=== PATIENT | male | born 1950 | race Caucasian/White ===

== ENCOUNTER → 2018-08-26 13:10 | Outpatient (CLI) | payer MEDICARE, SELFPAY ==
--- NOTE | 2018-08-26 13:20 | CT_ITS ---
STUDY: CT RIGHT SHOULDER REASON FOR EXAM: Male, 68 years old. Right clavicular pain, horse fell on patient 45 years ago RADIATION DOSAGE (If Supplied By Facility): CTDIvol = ( 29.12 ) mGy, DLP = ( 496.67 ) mGycm TECHNIQUE: The patient was scanned in a multi detector CT scanner. High resolution transaxial imaging was performed without the administration of intravenous contrast material. Sagittal and coronal images were reconstructed. Individualized dose optimization techniques were used for this CT. COMPARISON: None. FINDINGS: There is cephalad migration of the humeral head in relation to the glenoid compatible with a chronic rotator cuff injury. Small amorphous punctate calcifications of the anterior supraspinatus insertion are identified. Normal glenoid rim, neck and visualized scapula. Normal humeral head, neck and tuberosities. Normal coracoid process. Normal visualized lateral clavicle. There is moderate osteoarthritis with articular joint space narrowing and with osteoarthritic spurring. There is a Type III morphology (anterior hook), with a neutral orientation. Normal visualized muscles and soft tissue structures. There are degenerative changes of the cervical spine with endplate sclerosis and posterior disc osteophyte complexes. CT/Extremity Upper without Contra IMPRESSION: 1. Moderate acromioclavicular joint arthrosis with inferior spurring. 2. Suspect chronic rotator cuff injury, likely supraspinatus Electronically Signed: Ravindra Chisholm MD at 17:09 EST , Service support ,
--- OUTSIDE RECORDS SUMMARY | 2018-10-12 08:32 | XMS RPT_ITS ---
:1950 Author Organization OHIP Care Team Providers Name Role Phone MEHUL DUQUE Attending Unavailable MEHUL DUQUE Referring Unavailable MEHUL DUQUE Attending Unavailable MEHUL DUQUE Referring Unavailable PILO KIM Referring Unavailable Chito Campbell Attending Unavailable Chito Campbell Referring Unavailable SOFY DENNIS Primary Care Unavailable GUSTAVO CHOUDHARY, PhD, VIV Attending Unavailable GUSTAVO CHOUDHARY, PhD, VIV Referring Unavailable JULIO, PILO K Primary Care Unavailable JULIO CHOUDHARY, THAN Attending Unavailable PILO KIM K Primary Care Unavailable JULIO CHOUDHARY, THAN Attending Unavailable PILO KIM K Primary Care Unavailable JULIO CHOUDHARY, THAN Attending Unavailable JULIO, PILO K Primary Care Unavailable JULIO CHOUDHARY, THAN Attending Unavailable PILO KIM K Primary Care Unavailable JULIO CHOUDHARY, THAN Attending Unavailable PILO KIM K Primary Care Unavailable JULIO CHOUDHARY, THAN Attending Unavailable JULIO, PILO K Primary Care Unavailable JULIO CHOUDHARY, THAN Attending Unavailable JULIO PILO K Primary Care Unavailable JULIO CHOUDHARY, THAN Attending Unavailable PILO KIM Primary Care Unavailable JULIO CHOUDHARY, JAN Attending Unavailable PILO KIM Primary Care Unavailable PROBLEMS PROBLEMS DATE TYPE CONDITION / CODE ATTENDING STATUS SOURCE 07/26/2018 Active Other specified NA Active [facility] disorders of bone, Other [place] shoulder / Repository M89.8X1(ICD-10) 03/10/2017 Active 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 Imaging Services [address] [place] [address] Extremity Upper without Contra MR#: [id number] Acct: [id number] Name: TUAN NAVARRO Rep #: [id number] : 1950 M 68 From: Ravindra Chisholm MD PCP: OUT OF TOWN DOCTOR Status: REG CLI Study: Extremity Upper without Contra Date of Exam: 08/26/18 Exam# [id number] Ordering Dr: Chito Campbell DO STUDY: CT RIGHT SHOULDER REASON FOR EXAM: Male, 68 years old. Right clavicular pain, horse fell on patient 45 years ago RADIATION DOSAGE (If Supplied By Facility): CTDIvol = ( 29.12 ) mGy, DLP = ( 496.67 ) mGycm TECHNIQUE: The patient was scanned in a multi detector CT scanner. High resolution transaxial imaging was performed without the administration of intravenous contrast material. Sagittal and coronal images were reconstructed. Individualized dose optimization techniques were used for this CT. COMPARISON: None. FINDINGS: There is cephalad migration of the humeral head in relation to the glenoid compatible with a chronic rotator cuff injury. Small amorphous punctate calcifications of the anterior supraspinatus insertion are identified. Normal glenoid rim, neck and visualized scapula. Normal humeral head, neck and tuberosities. Normal coracoid process. Normal visualized lateral clavicle. There is moderate osteoarthritis with articular joint space narrowing and with osteoarthritic spurring. There is a Type III morphology (anterior hook), with a neutral orientation. Normal visualized muscles and soft tissue structures. There are degenerative changes of the cervical spine with endplate sclerosis and posterior disc osteophyte complexes. CT/Extremity Upper without Contra IMPRESSION: 1. Moderate acromioclavicular joint arthrosis with inferior spurring. 2. Suspect chronic rotator cuff injury, likely supraspinatus Electronically Signed: Ravindra Chisholm MD at 17:09 EST , Service support , CC: Chito Campbell DO; OUT OF TOWN DOCTOR Cruise Staff Member: Signed CLAVICLE 2V RIGHT Observed: 07/26/2018 Status: F Source: [facility] 4:20 PM HEALTH SYSTEM REPOSITORY Performed at [facility] APPROVED BY: Pedro Martinez MD EXAM TITLE: CLAVICLE 2V RIGHT DATE: 07/26/2018 15:39 INDICATION: Right clavicular pain. History of malignancy COMPARISON: None. FINDINGS: Routine views of the right clavicle demonstrate mild degenerative arthritic changes at the acromioclavicular joint. No fractures or dislocations are identified. There are no apparent osteoly tic lesions. Incidentally, pacemaker leads are noted. IMPRESSION: Osteoarthritis at the acromioclavicular joint. PROVIDER LETTER - Observed: 07/01/2018 Status: F Source: [facility] 9:[address] [facility] REPOS[facility] PILO KIM, [facility] [place] [address] RE: TUAN NAVARRO - 1950 Dear PILO KIM This document is confidential and intended solely for the use of the individual or entity to which they are addressed. If you are not the named addressee, please disregard and do not disseminate, distr ibute or copy this information. If you are not the intended recipient you are notified that any disclosure of this information and its contents are strictly prohibited. If you have any questions about this document, please contact the office. Sincerely, JULIO CHOUDHARY, THAN [facility] The following document(s) were included in the letter: July 01, 2018 09:03:00 EDT - (07/01/2018) Cardiology Office Note with BMI AMB OFFICE-PROGRESS Observed: 07/01/2018 Status: F Source: [facility] NOTES-PROVIDER 9[facility] [facility] Patient: TUAN NAVARRO Age: 68 years Sex: Male : 1950 Associated Diagnoses: None Author: JULIO CHOUDHARY, THAN Visit Information Visit type: Scheduled follow-up. Accompanied by: No one. Source of history: Self. Referral source: Self. History limitation: None. Chief Complaint Follow-up appointment because of dilated cardiomyopathy status post biventricular pacemaker, hypertension, congestive heart failure and left bundle branch block. Patient is doing very well denies any c ardiac symptoms and has been very active. Chart and medications reviewed. Review of Systems Constitutional: No fever, No chills, No sweats. Eye: Negative. Ear/Nose/Mouth/Throat: Negative. Respiratory: No shortness of breath, No cough. Cardiovascular: No chest pain, No syncope. Gastrointestinal: No nausea, No vomiting. Genitourinary: Negative. Gynecologic Hematology/Lymphatics: No bruising tendency, No bleeding tendency. Endocrine: Negative. Musculoskeletal: Negative. Integumentary: No rash, No abrasions. Psychiatric: No anxiety, No depression. Health Status Allergies: Allergies (2) Active Reaction Augmentin None Documented etodolac None Documented Current medications: Home Medications (12) Active carvedilol 3.125 mg oral tablet 3.125 mg = 1 tabs, ORAL, DAILY cinnamon 1,000 mg, ORAL, BID Co-Q10 100 mg oral capsule 100 mg = 1 caps, ORAL, DAILY digoxin 125 mcg (0.125 mg) oral tablet 125 mcg = 1 tabs, ORAL, DAILY Entresto 24 mg-26 mg oral tablet 1 tabs, ORAL, BID Flomax 0.4 mg oral capsule 0.4 mg = 1 caps, ORAL, DAILY furosemide 20 mg oral tablet 20 mg = 1 tabs, ORAL, DAILY magnesium 500 mg, ORAL, DAILY spironolactone 50 mg oral tablet 50 mg = 1 tabs, ORAL, BID Testosterone Cypionate 100 mg/mL intramuscular solution 50 mg = 0.5 mL, IM, [id number] venlafaxine 50 mg oral tablet 50 mg = 1 tabs, ORAL, DAILY Vitamin D3 , ORAL, DAILY Problem list: Active Problems (7) At risk for falls Dilated cardiomyopathy HTN (hypertension) LBBB (left bundle branch block) Orthopnea SOB (shortness of breath) Status post biventricular pacemaker Histories Past Medical History: No qualifying data available Family History: No family history items have been selected or recorded. Procedure history: Coronary Angiograms. ([id number]) on 01/12/2017 at 66 Years. MICRODISCECTOMY in 2014 at 65 Years. THUMB SURGERY in 2011 at 62 Years. SKIN CANCER in 2005 at 56 Years. CARPEL TUNNEL L HAND in 1992 at 43 Years. ELBOW SURGERY in 1990 at 41 Years. SPINAL BLOCKS 1987,,,13. Dual Chamber Implantable Cardiac Defibrillator & Lead Insertion. (52311). Bi-Ventricular Implantable Cardiac Defibrillator Generator Insertion. (07158). Social History Social & Psychosocial Habits Alcohol 12/04/2016 Risk Assessment: Denies Alcohol Use Exercise 12/04/2016 Risk Assessment: Regular exercise . Physical Examination Temperature 97.1 (08:53) Systolic Blood Pressure 118 (09:03) Diastolic Blood Pressure 70 (09:03) Pulse 72 (08:53) SpO2 No result Respiratory Rate No result VS/Measurements Documented vital signs, Vital Signs (last 24 hrs) Last Charted Heart Rate Apical 72 bpm (JUL 01 08:52) SBP 118 mmHg (JUL 01 09:02) DBP 70 mmHg (JUL 01 09:02) Weight 98 kg (JUL 01 08:52) Height 178 cm (JUL 01 08:52) BMI 30.93 (JUL 01 08:52) General: Alert and oriented, No acute distress. Skin: No cyanosis, Not jaundiced. Eye: Normal conjunctiva. HENT: Normocephalic. Neck: Supple, Non-tender, No carotid bruit, No jugular venous distention, No lymphadenopathy, No thyromegaly. Respiratory: Symmetrical chest wall expansion, No chest wall tenderness. Breath sounds: Bilateral, Anterior, Posterior, No wheezing, No crackles present. Cardiovascular: Normal rate, Regular rhythm, No murmur, No gallop, Good pulses equal in all extremities, Normal peripheral perfusion, No edema. Gastrointestinal: Soft, Non-tender, Normal bowel sounds, No organomegaly. Genitourinary: No costovertebral angle tenderness. Lymphatics: No lymphadenopathy neck, axilla, groin. Musculoskeletal: Normal range of motion, Normal strength, No tenderness, No deformity. Integumentary: Warm. Neurologic: Alert, Oriented, No focal deficits. Psychiatric: Cooperative, Normal judgment. Review / Management No qualifying data available Impression and Plan 1. Dilated cardiomyopathy. 2. LV systolic dysfunction status post biventricular pacemaker. 3. Blood pressure is controlled. 4. Congestive heart failure compensated. Plan. 1. Advised to continue same medications and increase activity. 2. Follow-up appointment in 3 months, echo to be done before the office visit. Electronically signed by Dr. Aliyah Kim. CBC Collected: 06/22/2018 Status: F Source: [place] 9:45 AM [facility] REPOSITORY TYPE CODE TESTS RESULT OUT OF REFERENCE UNITS RANGE LAB WBC 3.70-11.00 k/uL WBC 9.73 LAB RBC 4.20-6.00 m/uL RBC 4.72 LAB HGB 13.0-17.0 g/dL Hemoglobin 15.3 LAB HCT 39.0-51.0 % Hematocrit 46.2 LAB MCV 80.0-100.0 fL MCV 97.9 LAB MCH 26.0-34.0 pG MCH 32.4 LAB MCHC 30.5-36.0 g/dL MCHC 33.1 LAB RDWCV 11.5-15.0 % RDW-CV 12.9 LAB PLTCT 150-400 k/uL Platelet Count 250 LAB MPV 9.0-12.7 fL MPV 10.1 Performed By: #### CBC #### [facility] [address] [place] [address] #### PSAS1 #### [facility] [employer] [place] [address] PSA, SCREENING Collected: 06/22/2018 Status: F Source: [place] 9:45 AM [facility] REPOSITORY TYPE CODE TESTS RESULT OUT OF REFERENCE UNITS RANGE LAB PSAS 0.00-2.59 ng/mL PSA, Screening 0.65 Result Comment: Total PSA test methodology used is the Electrochemiluminescence Immunoassay. Performed By: #### CBC #### [facility] [address] [place] [address] #### PSAS1 #### [facility] [employer] [facility], [place] [address] PROGRESS Observed: 06/22/2018 Status: COMPLETED Source: [place] 9:27 AM [facility] REPOSITORY O ID: [id number] Author: Mehul Duque MD Service: (none) Author Type: Physician Type: Progress Notes Filed: 06/23/2018 1:30 PM Note Text: Follow-up 68 year-old male, patient of Dr. ALESHIA Kim, here for hypogonadism follow up. History in brief, he was diagnosed over 5 years ago when he developed symptoms The diagnosis was made Body logics- Dr.Gary Mike Current treatment: he takes 0.50 ml q 2 weeks IM Had pacemaker/defibrillator placed in 09/2017 Has chronic heart failure, now on Entresto. ? Current Outpatient Prescriptions on File Prior to Visit: testosterone cypionate (DEPO-TESTOSTERONE) 200 mg/mL injection inject 0.5 mls INTRAMUSCULARLY every 2 (TWO) weeks Syringe, Disposable, (EASY TOUCH LUER LOCK SYRINGE) 1 mL syrg For testosterone injections. Needle, Disp, 18 G (BD DISPOSABLE NEEDLES) 18 gauge x 1 ndle Use as directed to drawn testosterone Needle, Disp, 21 G 21 gauge x 1 ndle For testosterone injections sacubitril-valsartan (ENTRESTO) 24-26 mg tablet Take 1 tablet by mouth twice daily. furosemide (LASIX) 20 mg tablet Take 20 mg by mouth once daily. cholecalciferol (VITAMIN D-3) 5,000 unit tab Take 5,000 Units by mouth once daily. Magnesium Oxide 500 mg tab Take 500 mg by mouth once daily. carvedilol (COREG) 3.125 mg tablet Take 3.125 mg by mouth once daily. spironolactone (ALDACTONE) 50 mg tablet Take 1 tablet by mouth once daily. digoxin (LANOXIN) 125 mcg tablet Take 1 tablet by mouth once daily. venlafaxine (EFFEXOR) 50 mg tablet Take 1 tablet by mouth once daily. bimatoprost (LUMIGAN) 0.01 % drop ophthalmic drops 1 Drop daily at bedtime. CINNAMON BARK (CINNAMON ORAL) Take 1,000 mg by mouth twice daily. tamsulosin (FLOMAX) 0.4 mg Cp24 Take 0.4 mg by mouth once daily. ALLERGIES Allergen Reactions - Augmentin [Amoxicil* Intolerance, Diarrhea - Etodolac Intolerance REVIEW OF SYSTEMS: ? GENERAL: Fever - No Changes in weight -see above Notes no daytime hypersomnolence NEUROLOGICAL: Numbness, tingling or sensation of pins and needles - No Headaches-No ? HEAD, EYES, EARS, NOSE, AND THROAT: Changes in hearing - No Changes in vision - No ? ? CARDIOVASCULAR: Chest pain or pressure - No Palpitations - No ? RESPIRATORY: Cough - No Wheezing - No Shortness of breath - No ? ? GASTROINTESTINAL: Abdominal discomfort - No Nausea - No Vomiting - No ? EXTREMITY: Edema (swelling) - No Claudication-No ? MUSCULOSKELETAL: Muscle pain or ache - No Arthralgia-No ? Skin: Rash - No Pruritus-No ? ENDOCRINE: Diabetes - No Thyroid disorder - No ? PSYCHOLOGICAL: Depression - No ? PAST MEDICAL HISTORY: PAST?MEDICAL?HISTORY PAST MEDICAL HISTORY Diagnosis Date - Ankle fracture 1980 ? left - Cancer (HCC) 08/18/2006 ? skin - Clavicle fracture 11/1972 ? right - Depression ? - Diverticulosis ? - Enlarged prostate ? - Fibromyalgia ? - H/O microdiscectomy 05/2015 - Herniated disc ? - Hypertension ? - Lower GI bleeding 11/10/2015 - Osteoarthritis ? - Shoulder fracture 12/1997 ? left - Skin cancer 2005,2011 ? ?PHYSICAL EXAM: BP 111/68 (BP Site: Left Arm, BP Position: Sitting, BP Cuff Size: Large Adult) Pulse 68 Ht 177.8 cm (5' 10) Wt 99.6 kg (219 lb 9.6 oz) SpO2 99% BMI 31.51 kg/m? General: Alert and oriented x3, no acute distress Weight up 3 pounds since 12/2017 BP normal, pulse regular. Eyes: Anicteric sclera. Pupils are equally round. Extraocular movements are intact. Mucous membranes moist, no erythema Neck supple, no cervical lymphadenopathy Thyroid: normal size, normal texture, no palpable nodules Lungs: Breathing unlabored, clear to auscultation. No wheezing, rhonchi, rales Heart regular rate and rhythm, no murmer Musculoskeletal: Muscular strength intact, No joint swelling, deformity, or tenderness Neuro: Gait normal. Sensation grossly intact. Normal DTR's at patella Abdomen:Normal abdominal sounds, non tender to palpation, no masses Extremities: without edema, good peripheral pulses Skin: no rashes/ erythema Results for TUAN NAVARRO Georgi ( ) Ref. Range 12/29/2017 10:44 Testosterone Latest Ref Range: 193 - 824 ng/dL 623 08/30/2017 10:06 09/15/2017 11:01 11/17/2017 09:32 Sodium 141 Potassium 4.7 Chloride 98 CO2 30 BUN 18 Creatinine 0.99 Glucose 103 (H) Calcium 9.7 Vitamin B12 558 PSA 0.96 PSA, Percent Free 22 Hemoglobin A1C 5.6 TSH 0.830 Testosterone 310 WBC 4.70 6.92 RBC 4.59 4.76 Hemoglobin 14.8 15.3 Hematocrit 45.9 47.9 [facility] website checked and validated. All prescriptions have been APPROPRIATELY filled. No suspicious activity was identified. 06/22/2018 by Mheul Duque MD ASSESSMENT/PLAN: Hypogonadism - continue testosterone parenterally, prefers smaller needles? Obesity - urged weight loss efforts PLAN: ? OK to go back to prior needle use for shots. ? Get labs done at [facility] - CBC, PSA ? Will call with results. ? See me again in 12 months. ? Do testosterone level again in December,, one week after testosterone injection.See me again in 6-9 months. Mehul Duque MD CNOV Observed: 06/22/2018 Status: COMPLETED Source: [place] 9:05 AM [facility] REPOSITORY Office Visit (SELVIN) TUAN NAVARRO ([id number]) 1950 M Date Time Provider Department 06/22/18 9:05 AM MEHUL DUQUE During your visit today, we recorded the following information about you: Pulse Blood pressure Weight Height 68/minute 111/68 99.6 kg 1.778 m Mehul Duque MD, MD 06/23/2018 1:30 PM Signed Follow-up 68 year-old male, patient of Dr. ALESHIA Kim, here for hypogonadism follow up. History in brief, he was diagnosed over 5 years ago when he developed symptoms The diagnosis was made Body logics- Dr.Gary Mike Current treatment: he takes 0.50 ml q 2 weeks IM Had pacemaker/defibrillator placed in 09/2017 Has chronic heart failure, now on Entresto. ? Current Outpatient Prescriptions on File Prior to Visit: testosterone cypionate (DEPO-TESTOSTERONE) 200 mg/mL injection inject 0.5 mls INTRAMUSCULARLY every 2 (TWO) weeks Syringe, Disposable, (EASY TOUCH LUER LOCK SYRINGE) 1 mL syrg For testosterone injections. Needle, Disp, 18 G (BD DISPOSABLE NEEDLES) 18 gauge x 1 ndle Use as directed to drawn testosterone Needle, Disp, 21 G 21 gauge x 1 ndle For testosterone injections sacubitril-valsartan (ENTRESTO) 24-26 mg tablet Take 1 tablet by mouth twice daily. furosemide (LASIX) 20 mg tablet Take 20 mg by mouth once daily. cholecalciferol (VITAMIN D-3) 5,000 unit tab Take 5,000 Units by mouth once daily. Magnesium Oxide 500 mg tab Take 500 mg by mouth once daily. carvedilol (COREG) 3.125 mg tablet Take 3.125 mg by mouth once daily. spironolactone (ALDACTONE) 50 mg tablet Take 1 tablet by mouth once daily. digoxin (LANOXIN) 125 mcg tablet Take 1 tablet by mouth once daily. venlafaxine (EFFEXOR) 50 mg tablet Take 1 tablet by mouth once daily. bimatoprost (LUMIGAN) 0.01 % drop ophthalmic drops 1 Drop daily at bedtime. CINNAMON BARK (CINNAMON ORAL) Take 1,000 mg by mouth twice daily. tamsulosin (FLOMAX) 0.4 mg Cp24 Take 0.4 mg by mouth once daily. ALLERGIES Allergen Reactions - Augmentin [Amoxicil* Intolerance, Diarrhea - Etodolac Intolerance REVIEW OF SYSTEMS: ? GENERAL: Fever - No Changes in weight -see above Notes no daytime hypersomnolence NEUROLOGICAL: Numbness, tingling or sensation of pins and needles - No Headaches-No ? HEAD, EYES, EARS, NOSE, AND THROAT: Changes in hearing - No Changes in vision - No ? ? CARDIOVASCULAR: Chest pain or pressure - No Palpitations - No ? RESPIRATORY: Cough - No Wheezing - No Shortness of breath - No ? ? GASTROINTESTINAL: Abdominal discomfort - No Nausea - No Vomiting - No ? EXTREMITY: Edema (swelling) - No Claudication-No ? MUSCULOSKELETAL: Muscle pain or ache - No Arthralgia-No ? Skin: Rash - No Pruritus-No ? ENDOCRINE: Diabetes - No Thyroid disorder - No ? PSYCHOLOGICAL: Depression - No ? PAST MEDICAL HISTORY: PAST?MEDICAL?HISTORY PAST MEDICAL HISTORY Diagnosis Date - Ankle fracture 1980 ? left - Cancer (HCC) 08/18/2006 ? skin - Clavicle fracture 11/1972 ? right - Depression ? - Diverticulosis ? - Enlarged prostate ? - Fibromyalgia ? - H/O microdiscectomy 05/2015 - Herniated disc ? - Hypertension ? - Lower GI bleeding 11/10/2015 - Osteoarthritis ? - Shoulder fracture 12/1997 ? left - Skin cancer 2005,2011 ? ?PHYSICAL EXAM: BP 111/68 (BP Site: Left Arm, BP Position: Sitting, BP Cuff Size: Large Adult) Pulse 68 Ht 177.8 cm (5' 10) Wt 99.6 kg (219 lb 9.6 oz) SpO2 99% BMI 31.51 kg/m? General: Alert and oriented x3, no acute distress Weight up 3 pounds since 12/2017 BP normal, pulse regular. Eyes: Anicteric sclera. Pupils are equally round. Extraocular movements are intact. Mucous membranes moist, no erythema Neck supple, no cervical lymphadenopathy Thyroid: normal size, normal texture, no palpable nodules Lungs: Breathing unlabored, clear to auscultation. No wheezing, rhonchi, rales Heart regular rate and rhythm, no murmer Musculoskeletal: Muscular strength intact, No joint swelling, deformity, or tenderness Neuro: Gait normal. Sensation grossly intact. Normal DTR's at patella Abdomen:Normal abdominal sounds, non tender to palpation, no masses Extremities: without edema, good peripheral pulses Skin: no rashes/ erythema Results for TUAN NAVARRO ( ) Ref. Range 12/29/2017 10:44 Testosterone Latest Ref Range: 193 - 824 ng/dL 623 08/30/2017 10:06 09/15/2017 11:01 11/17/2017 09:32 Sodium 141 Potassium 4.7 Chloride 98 CO2 30 BUN 18 Creatinine 0.99 Glucose 103 (H) Calcium 9.7 Vitamin B12 558 PSA 0.96 PSA, Percent Free 22 Hemoglobin A1C 5.6 TSH 0.830 Testosterone 310 WBC 4.70 6.92 RBC 4.59 4.76 Hemoglobin 14.8 15.3 Hematocrit 45.9 47.9 [facility] checked and validated. All prescriptions have been APPROPRIATELY filled. No suspicious activity was identified. 06/22/2018 by Mehul Duque MD ASSESSMENT/PLAN: Hypogonadism - continue testosterone parenterally, prefers smaller needles? Obesity - urged weight loss efforts PLAN: ? OK to go back to prior needle use for shots. ? Get labs done at [facility] - CBC, PSA ? Will call with results. ? See me again in 12 months. ? Do testosterone level again in December,, one week after testosterone injection.See me again in 6-9 months. MD Mehul Castillo MD, MD 06/22/2018 9:37 AM Signed OK to go back to prior needle use for shots. Get labs done at [facility]. Will call with results. See me again in 12 months. Do testosterone level again in December,, one week after testosterone injection. Referring Provider: SELF [200] Allergies As of Date: 06/22/2018 Noted Allergy Reaction AUGMENTIN (AMOXICILLIN-POT CLAVUL*12/08/2016 5 - Intolerance 6 - Diarrhea ETODOLAC 12/08/2016 5 - Intolerance Date Reviewed: 06/22/2018 Reviewed by: Stephen Del Toro Ma - Fully Assessed Reason for Visit: Low Testosterone [2926] Primary Visit Diagnosis:Hypogonadism male [E29.1] Other Visit Diagnosis:Obesity, Class I, BMI 30-34.9 [E66.9] Order(s):Needle, Disp, 18 G (BD DISPOSABLE NEEDLES) 18 gauge x 1 ndleUse as directed to drawn testosteroneDisp: 30 EachRfl: 1 Safety Hershey (EASY TOUCH FLIPLOCK NEEDLE) 27 gauge x 1/2 ndleUse as directed every 2 weeksDisp: 30 EachRfl: 1 CBC [SQCBC] Order #: [id number] FUTURE PSA/PROSTSPECAG SCRN [SQPSAS1] Order #: [id number] FUTURE TESTOSTERONE TOTAL [SQTESTO] Order #: [id number] FUTURE testosterone cypionate (DEPO-TESTOSTERONE) 200 mg/mL injectioninject 0.5 mls INTRAMUSCULARLY every 2 (TWO) weeksDisp: 10 mLRfl: 0 Prescriptions as of 06/22/2018 Sig: TESTOSTERONE CYPIONATE 200 MG* inject 0.5 mls INTRAMUSCULARL* SYRINGE (DISPOSABLE) 1 ML For testosterone injections. SACUBITRIL 24 MG-VALSARTAN 26* Take 1 tablet by mouth twice * FUROSEMIDE 20 MG TABLET Take 20 mg by mouth once ricardo* CHOLECALCIFEROL (VITAMIN D3) * Take 5,000 Units by mouth onc* MAGNESIUM OXIDE 500 MG TABLET Take 500 mg by mouth once jeremias* CARVEDILOL 3.125 MG TABLET Take 3.125 mg by mouth once d* SPIRONOLACTONE 50 MG TABLET Take 1 tablet by mouth once d* DIGOXIN 125 MCG TABLET Take 1 tablet by mouth once d* VENLAFAXINE 50 MG TABLET Take 1 tablet by mouth once d* BIMATOPROST 0.01 % EYE DROPS 1 Drop daily at bedtime. CINNAMON ORAL Take 1,000 mg by mouth twice * TAMSULOSIN 0.4 MG CAPSULE Take 0.4 mg by mouth once jeremias* NEEDLE (DISP) 18 GAUGE X 1 Use as directed to drawn test* SAFETY NEEDLES 27 GAUGE X 1/2 Use as directed every 2 weeks Problem List As Of Date 06/22/2018 Noted Resolved Enthesopathy of hip region [M76.899] INVALID FOR*12/17/2017 Facet arthropathy (HCC) [M47.819] INVALID FOR*12/17/2017 Lumbar radiculopathy [M54.16] INVALID FOR* Left hip pain [M25.552] INVALID FOR*12/17/2017 Left knee pain [M25.562] INVALID FOR*12/17/2017 Chondrocalcinosis [M11.20] INVALID FOR*06/22/2018 Hip arthritis [M16.10] INVALID FOR*12/17/2017 Lower GI bleeding [K92.2] INVALID FOR*12/17/2017 Hypogonadism male [E29.1] INVALID FOR* Presence of combination internal cardiac defibr*INVALID FOR* Obesity, Class I, BMI 30-34.9 [E66.9] INVALID FOR* Chronic systolic heart failure (HCC) [I50.22] INVALID FOR* Other instructions from your clinician: OK to go back to prior needle use for shots. Get labs done at [facility]. Will call with results. See me again in 12 months. Do testosterone level again in December,, one week after testosterone injection. Prescriptions ordered this encounter Disp Refills Start End NEEDLE (DISP) 18 GAUGE X 1 30 E* 1 06/22/2018 Sig: Use as directed to drawn testosterone SAFETY NEEDLES 27 GAUGE X 1/2 30 E* 1 06/22/2018 Sig: Use as directed every 2 weeks TESTOSTERONE CYPIONATE 200 MG/ML INT* 10 mL 0 06/22/2018 12/21/2018 Class: Print RX Sig: inject 0.5 mls INTRAMUSCULARLY every 2 (TWO) weeks Medications Discontinued During This Encounter UBIDECARENONE (COQ-10 ORAL) 06/22/2018 Class: Historical Med Route: ORAL Sig: Take 100 mg by mouth once daily. Disc: Course of therapy completed cyanocobalamin (VITAMIN B-12) 1,000 * 06/22/2018 Class: Historical Med Route: ORAL Sig: Take 1,000 mcg by mouth once daily. Disc: Course of therapy completed Needle, Disp, 21 G 21 gauge x 1 ndle 10 E* 3 12/17/2017 06/22/2018 Sig: For testosterone injections Disc: Reason for discontinue is not on file. Needle, Disp, 18 G (BD DISPOSABLE NE* 10 E* 3 12/17/2017 06/22/2018 Sig: Use as directed to drawn testosterone Disc: Reason for discontinue is not on file. testosterone cypionate (DEPO-TESTOST* 10 mL 0 05/13/2018 06/22/2018 Class: Print RX Sig: inject 0.5 mls INTRAMUSCULARLY every 2 (TWO) weeks Disc: Reason for discontinue is not on file. Follow-up and Disposition History Recorded Encounter Status:Closed by MEHUL DUQUE MD on 06/23/18 PROVIDER LETTER - Observed: 04/01/2018 Status: F Source: [facility] 11:[address] [facility] RE[facility]IT[facility] PILO KIM, [address] [place] [id number] RE: TUAN NAVARRO - 1950 Dear PILO KIM This document is confidential and intended solely for the use of the individual or entity to which they are addressed. If you are not the named addressee, please disregard and do not disseminate, distr ibute or copy this information. If you are not the intended recipient you are notified that any disclosure of this information and its contents are strictly prohibited. If you have any questions about this document, please contact the office. Sincerely, JULIO CHOUDHARY, [facility] The following document(s) were included in the letter: April 01, 2018 11:18:00 EDT - (04/01/2018) Cardiology Office Note with BMI AMB OFFICE-PROGRESS Observed: 04/01/2018 Status: F Source: [facility] NOTES-PROVIDER 11:[address] [facility] Patient: TUAN NAVARRO Age: 68 years Sex: Male : 1950 Associated Diagnoses: None Author: JAN KIM MD Visit Information Visit type: Scheduled follow-up. Accompanied by: No one. Source of history: Self. Referral source: Self. History limitation: None. Chief Complaint Follow-up appointments because of severe LV systolic dysfunction status post biventricular pacemaker, diastolic dysfunction, congestive heart failure and LEFT bundle-branch block. Patient is doing much better denies any orthopnea or PND and has been very active. Chart and medications reviewed. Reserves of echocardiogram reviewed patient still has ejection fraction of 25-30 percent. Review of Systems Constitutional: No fever, No chills, No sweats. Eye: Negative. Ear/Nose/Mouth/Throat: Negative. Respiratory: No shortness of breath, No cough. Cardiovascular: No chest pain, No syncope. Gastrointestinal: No nausea, No vomiting. Genitourinary: Negative. Gynecologic Hematology/Lymphatics: No bruising tendency, No bleeding tendency. Endocrine: Negative. Musculoskeletal: Negative. Integumentary: No rash, No abrasions. Psychiatric: No anxiety, No depression. Health Status Allergies: Allergies (2) Active Reaction Augmentin None Documented etodolac None Documented Current medications: Home Medications (13) Active carvedilol 3.125 mg oral tablet 3.125 mg = 1 tabs, ORAL, BID cinnamon 1,000 mg, ORAL, BID Co-Q10 100 mg oral capsule 100 mg = 1 caps, ORAL, DAILY digoxin 125 mcg (0.125 mg) oral tablet 125 mcg = 1 tabs, ORAL, DAILY Entresto 24 mg-26 mg oral tablet 1 tabs, ORAL, BID Flomax 0.4 mg oral capsule 0.4 mg = 1 caps, ORAL, DAILY furosemide 20 mg oral tablet 20 mg = 1 tabs, ORAL, DAILY magnesium 500 mg, ORAL, DAILY spironolactone 50 mg oral tablet 50 mg = 1 tabs, ORAL, DAILY spironolactone 50 mg oral tablet 50 mg = 1 tabs, ORAL, BID Testosterone Cypionate 100 mg/mL intramuscular solution 50 mg = 0.5 mL, IM, [id number] venlafaxine 50 mg oral tablet 50 mg = 1 tabs, ORAL, DAILY Vitamin D3 , ORAL, DAILY Problem list: Active Problems (7) At risk for falls Dilated cardiomyopathy HTN (hypertension) LBBB (left bundle branch block) Orthopnea SOB (shortness of breath) Status post biventricular pacemaker Histories Past Medical History: No qualifying data available Family History: No family history items have been selected or recorded. Procedure history: Coronary Angiograms. ([id number]) on 01/12/2017 at 66 Years. MICRODISCECTOMY in 2014 at 65 Years. THUMB SURGERY in 2011 at 62 Years. SKIN CANCER in 2005 at 56 Years. CARPEL TUNNEL L HAND in 1992 at 43 Years. ELBOW SURGERY in 1990 at 41 Years. SPINAL BLOCKS 1987,,,13. Dual Chamber Implantable Cardiac Defibrillator & Lead Insertion. ([id number]). Bi-Ventricular Implantable Cardiac Defibrillator Generator Insertion. (10454). Social History Social & Psychosocial Habits Alcohol 12/04/2016 Risk Assessment: Denies Alcohol Use Exercise 12/04/2016 Risk Assessment: Regular exercise . Physical Examination Temperature 97.9 (11:08) Systolic Blood Pressure 110 (11:17) Diastolic Blood Pressure 60 (11:17) Pulse 64 (11:08) SpO2 No result Respiratory Rate No result VS/Measurements Documented vital signs, Vital Signs (last 24 hrs) Last Charted Heart Rate Apical 64 bpm (APR 01:) SBP 110 mmHg (APR 01:) DBP 60 mmHg (APR 01:) Weight 98 kg (APR 01:) Height 180 cm (APR 01:) BMI 30.25 (APR 01:) General: Alert and oriented, No acute distress. Skin: No cyanosis, Not jaundiced. Eye: Normal conjunctiva. HENT: Normocephalic. Neck: Supple, Non-tender, No carotid bruit, No jugular venous distention, No lymphadenopathy, No thyromegaly. Respiratory: Symmetrical chest wall expansion, No chest wall tenderness. Breath sounds: Bilateral, Anterior, Posterior, No wheezing, No crackles present. Cardiovascular: Normal rate, Regular rhythm, No murmur, No gallop, Good pulses equal in all extremities, Normal peripheral perfusion, No edema. Gastrointestinal: Soft, Non-tender, Normal bowel sounds, No organomegaly. Genitourinary: No costovertebral angle tenderness. Lymphatics: No lymphadenopathy neck, axilla, groin. Musculoskeletal: Normal range of motion, Normal strength, No tenderness, No deformity. Integumentary: Warm. Neurologic: Alert, Oriented, No focal deficits. Psychiatric: Cooperative, Normal judgment. Review / Management No qualifying data available Impression and Plan 1. Severe LV systolic dysfunction with ejection fraction of 25-30 percent. 2. Congestive heart failure compensated. 3. Blood pressure is normal. 4. Status post biventricular pacemaker, site is normal. 5. LEFT Bundle-branch block. Plan. 1. Advised to increase activity. 2. Increase spironolactone to 50 milligrams by mouth twice a day. 3. BMP in 1 month. 4. Follow-up appointment in 3 months Electronically signed by Dr. Aliyah Kim. CNCO Observed: 02/05/2018 Status: COMPLETED Source: [facility] 12:00 AM [facility] REPOSITORY Letter Text Mehul Duque MD [facility] [address] [place] [address] Tuan Navarro February 05, 2018 Tuan Navarro [address] [place], [place] [id number] Dear Tuan Navarro: Due to a change in your provider's schedule, it has become necessary to reschedule the following appointment: Mehul Duque MD Date: 06/15/18 We apologize for any inconvenience to you, however your provider would still like to see you. Please call us at [phone] to reschedule your appointment. Sincerely, Appointment Staff PROVIDER LETTER - Observed: 01/18/2018 Status: F Source: [facility] 10:[address] [facility] PILO KIM, [facility] [place] [address] RE: TUAN NAVARRO - 1950 Dear PILO KIM This document is confidential and intended solely for the use of the individual or entity to which they are addressed. If you are not the named addressee, please disregard and do not disseminate, distr ibute or copy this information. If you are not the intended recipient you are notified that any disclosure of this information and its contents are strictly prohibited. If you have any questions about this document, please contact the office. Sincerely, JULIO CHOUDHARY, JAN [facility] The following document(s) were included in the letter: January 18, 2018 10:47:00 EDT - (01/18/2018) Cardiology Office Note with BMI AMB OFFICE-PROGRESS Observed: 01/18/2018 Status: F Source: [facility] NOTES-PROVIDER 10:[address] [facility] Patient: TUAN NAVARRO Age: 67 years Sex: Male : 1950 Associated Diagnoses: None Author: JAN KIM MD Visit Information Visit type: Scheduled follow-up. Accompanied by: No one. Source of history: Self. Referral source: Self. History limitation: None. Chief Complaint Follow-up appointment because of dilated cardiomyopathy with severe LV systolic dysfunction, status post biventricular ICD, hypertension, chronic shortness of breath and congestive heart failure. Patie nt is doing very well denies any orthopnea or PND and shortness of breath has improved significantly. Patient has gained some weight and he will try to lose. Chart and medications reviewed. Review of Systems Constitutional: No fever, No chills, No sweats. Eye: Negative. Ear/Nose/Mouth/Throat: Negative. Respiratory: No shortness of breath, No cough. Cardiovascular: No chest pain, No syncope. Gastrointestinal: No nausea, No vomiting. Genitourinary: Negative. Gynecologic Hematology/Lymphatics: No bruising tendency, No bleeding tendency. Endocrine: Negative. Musculoskeletal: Negative. Integumentary: No rash, No abrasions. Psychiatric: No anxiety, No depression. Health Status Allergies: Allergies (2) Active Reaction Augmentin None Documented etodolac None Documented Current medications: Home Medications (13) Active carvedilol 3.125 mg oral tablet 3.125 mg = 1 tabs, ORAL, ONCE cinnamon 1,000 mg, ORAL, BID Co-Q10 100 mg oral capsule 100 mg = 1 caps, ORAL, DAILY digoxin 125 mcg (0.125 mg) oral tablet 125 mcg = 1 tabs, ORAL, DAILY Entresto 24 mg-26 mg oral tablet 1 tabs, ORAL, BID Flomax 0.4 mg oral capsule 0.4 mg = 1 caps, ORAL, DAILY furosemide 20 mg oral tablet 20 mg = 1 tabs, ORAL, DAILY Lumigan 0.01% ophthalmic solution 1 drops, Both Eyes, QPM magnesium 500 mg, ORAL, DAILY spironolactone 50 mg oral tablet 50 mg = 1 tabs, ORAL, DAILY Testosterone Cypionate 100 mg/mL intramuscular solution 50 mg = 0.5 mL, IM, [id number] venlafaxine 50 mg oral tablet 50 mg = 1 tabs, ORAL, DAILY Vitamin D3 , ORAL, DAILY Problem list: Active Problems (7) At risk for falls Dilated cardiomyopathy HTN (hypertension) LBBB (left bundle branch block) Orthopnea SOB (shortness of breath) Status post biventricular pacemaker Histories Past Medical History: No qualifying data available Family History: No family history items have been selected or recorded. Procedure history: Coronary Angiograms. ([id number]) on 01/12/2017 at 66 Years. MICRODISCECTOMY in 2014 at 65 Years. THUMB SURGERY in 2011 at 62 Years. SKIN CANCER in 2005 at 56 Years. CARPEL TUNNEL L HAND in 1992 at 43 Years. ELBOW SURGERY in 1990 at 41 Years. SPINAL BLOCKS 1987,,,13. Dual Chamber Implantable Cardiac Defibrillator & Lead Insertion. (20412). Bi-Ventricular Implantable Cardiac Defibrillator Generator Insertion. (29626). Social History Social & Psychosocial Habits Alcohol 12/04/2016 Risk Assessment: Denies Alcohol Use Exercise 12/04/2016 Risk Assessment: Regular exercise . Physical Examination Temperature 97.4 (10:34) Systolic Blood Pressure 106 (10:47) Diastolic Blood Pressure 60 (10:47) Pulse 74 (10:34) SpO2 No result Respiratory Rate No result VS/Measurements Documented vital signs, Vital Signs (last 24 hrs) Last Charted Minimum Maximum Heart Rate 74 (JANUARY 18 10:32) 74 (JANUARY 18 10:32) 74 (JANUARY 18 10:32) SBP 106 (JANUARY 18 10:47) 106 (JANUARY 18 10:47) 106 (JANUARY 18 10:47) DBP 60 (JANUARY 18 10:47) 60 (JANUARY 18 10:47) 60 (JANUARY 18 10:47) Weight 97 (JANUARY 18 10:32) Height 175 (JANUARY 18 10:32) BMI 31.67 (JANUARY 18 10:32) General: Alert and oriented, No acute distress. Skin: No cyanosis, Not jaundiced. Eye: Normal conjunctiva. HENT: Normocephalic. Neck: Supple, Non-tender, No carotid bruit, No jugular venous distention, No lymphadenopathy, No thyromegaly. Respiratory: Symmetrical chest wall expansion, No chest wall tenderness. Breath sounds: Bilateral, Anterior, Posterior, No wheezing, No crackles present. Cardiovascular: Normal rate, Regular rhythm, No murmur, No gallop, Good pulses equal in all extremities, Normal peripheral perfusion, No edema. Gastrointestinal: Soft, Non-tender, Normal bowel sounds, No organomegaly. Genitourinary: No costovertebral angle tenderness. Lymphatics: No lymphadenopathy neck, axilla, groin. Musculoskeletal: Normal range of motion, Normal strength, No tenderness, No deformity. Integumentary: Warm. Neurologic: Alert, Oriented, No focal deficits. Psychiatric: Cooperative, Normal judgment. Review / Management No qualifying data available Impression and Plan 1. Dilated cardiomyopathy stable. 2. Status post biventricular ICD. 3. Severe LV systolic dysfunction. 4. Blood patient is low normal asymptomatic. 5. Shortness of breath improved. Plan. 1. Advised to increase activity and cut back on her high- calorie food. 2. Echocardiogram to be scheduled for elevated function evaluation in March. 3. Follow-up appointment in April 2018. Electronically signed by Dr. Aliyah Kim. PHONE MSG Observed: 01/18/2018 Status: F Source: [facility] 10:[address] [facility] From: Kaur Coelho To: Magaly Funk MA; Katherine Cintron MA; Luisa Chung MA; Kaur Coelho; Cc: Mouna Son; Sent: 01/18/2018 10:48:51 EDT Subject: echo per patient needs an echo done in the office . TESTOSTERONE Collected: 12/29/2017 Status: F Source: [facility] 10:44 AM [facility] REPOSITORY TYPE CODE TESTS RESULT OUT OF REFERENCE UNITS RANGE LAB TESTO 193-824 ng/dL Testosterone 623 Result Comment: A testosterone level in the 193-320 ng/dL range with associated clinical symptoms is considered low and may indicate hypogonadism (from NEJM 2010 363:123-135). Results >320 ng/dL are considered normal. Performed By: #### TESTO #### [facility] [address] [place], [place] [address] PROGRESS Observed: 12/17/2017 Status: COMPLETED Source: [facility] 2:07 PM [facility] REPOSITORY HNO ID: [id number] Author: Mehul Duque MD Service: (none) Author Type: Physician Type: Progress Notes Filed: 12/18/2017 1:23 PM Note Text: Follow-up 67 year-old male, patient of Dr. ALESHIA Kim, here for hypogonadism follow up. Previously followed by Dr. Beba Márquez. History in brief, he was diagnosed 5 years ago when he developed symptoms The diagnosis was made Body logics- Dr.Gary Rashid Márquez decreased his testosterone dose after he was noted to have elevated testosterone level ~ 1300 Current treatment: he takes 0.50 ml q 2 weeks (has been giving it deep sc) Had pacemaker/defibrillator placed in 09/2017 ? Current Outpatient Prescriptions on File Prior to Visit: testosterone cypionate (DEPO-TESTOSTERONE) 200 mg/mL injection Inject 0.5 ml IM every 2 weeks Safety Hershey (EASY TOUCH FLIPLOCK NEEDLE) 27 gauge x 1/2 ndle Use as directed every 2 weeks Needle, Disp, 18 G (BD DISPOSABLE NEEDLES) 18 gauge x 1 ndle Use as directed to drawn testosterone sacubitril-valsartan (ENTRESTO) 24-26 mg tablet Take 1 tablet by mouth twice daily. furosemide (LASIX) 20 mg tablet Take 20 mg by mouth once daily. cholecalciferol (VITAMIN D-3) 5,000 unit tab Take 5,000 Units by mouth once daily. cyanocobalamin (VITAMIN B-12) 1,000 mcg tab Take 1,000 mcg by mouth once daily. Magnesium Oxide 500 mg tab Take 500 mg by mouth once daily. UBIDECARENONE (COQ-10 ORAL) Take 100 mg by mouth once daily. carvedilol (COREG) 3.125 mg tablet Take 3.125 mg by mouth once daily. spironolactone (ALDACTONE) 50 mg tablet Take 1 tablet by mouth once daily. digoxin (LANOXIN) 125 mcg tablet Take 1 tablet by mouth once daily. venlafaxine (EFFEXOR) 50 mg tablet Take 1 tablet by mouth once daily. bimatoprost (LUMIGAN) 0.01 % drop ophthalmic drops 1 Drop daily at bedtime. CINNAMON BARK (CINNAMON ORAL) Take 1,000 mg by mouth twice daily. tamsulosin (FLOMAX) 0.4 mg Cp24 Take 0.4 mg by mouth once daily. General symptoms: Fatigue: No Weight change: weight gain of 5 lbs since last visit Decreased libido Shaving frequency: no changes, every other day Depression: on Effexor Urinary frequency: No, on diuretics ?? REVIEW OF SYSTEMS: ? GENERAL: Fever - No Changes in weight -see above Notes no daytime hypersomnolence NEUROLOGICAL: Numbness, tingling or sensation of pins and needles - No Headaches-No ? HEAD, EYES, EARS, NOSE, AND THROAT: Changes in hearing - No Changes in vision - No ? ? CARDIOVASCULAR: Chest pain or pressure - No Palpitations - No ? RESPIRATORY: Cough - No Wheezing - No Shortness of breath - No ? ? GASTROINTESTINAL: Abdominal discomfort - No Nausea - No Vomiting - No ? EXTREMITY: Edema (swelling) - No Claudication-No ? MUSCULOSKELETAL: Muscle pain or ache - No Arthralgia-No ? Skin: Rash - No Pruritus-No ? ENDOCRINE: Diabetes - No Thyroid disorder - No ? PSYCHOLOGICAL: Depression - No ? ALLERGIES: ALLERGIES ALLERGIES Allergen Reactions - Augmentin [Amoxicil* Intolerance, Diarrhea - Etodolac Intolerance ? ? ? PAST MEDICAL HISTORY: PAST?MEDICAL?HISTORY PAST MEDICAL HISTORY Diagnosis Date - Ankle fracture 1980 ? left - Cancer (HCC) 08/18/2006 ? skin - Clavicle fracture 11/1972 ? right - Depression ? - Diverticulosis ? - Enlarged prostate ? - Fibromyalgia ? - H/O microdiscectomy 05/2015 - Herniated disc ? - Hypertension ? - Lower GI bleeding 11/10/2015 - Osteoarthritis ? - Shoulder fracture 12/1997 ? left - Skin cancer 2005,2011 ? ?PHYSICAL EXAM: BP 110/78 (BP Site: Left Arm, BP Position: Sitting, BP Cuff Size: Large Adult) Pulse 90 Ht 177 cm (5' 9.69) Wt 98.1 kg (216 lb 3.2 oz) SpO2 97% BMI 31.3 kg/m2 General: Alert and oriented x3, no acute distress Weight stable Eyes: Anicteric sclera. Pupils are equally round. Extraocular movements are intact. Mucous membranes moist, no erythema Neck supple, no cervical lymphadenopathy Thyroid: normal size, normal texture, no palpable nodules Lungs: Breathing unlabored, clear to auscultation. No wheezing, rhonchi, rales Heart regular rate and rhythm, no murmer Musculoskeletal: Muscular strength intact, No joint swelling, deformity, or tenderness Neuro: Gait normal. Sensation grossly intact. Normal DTR's at patella Abdomen:Normal abdominal sounds, non tender to palpation, no masses Extremities: without edema, good peripheral pulses Skin: no rashes/ erythema ? Results for TUAN NAVARRO ( ) 08/30/2017 10:06 09/15/2017 11:01 11/17/2017 09:32 Sodium 141 Potassium 4.7 Chloride 98 CO2 30 BUN 18 Creatinine 0.99 Glucose 103 (H) Calcium 9.7 Vitamin B12 558 PSA 0.96 PSA, Percent Free 22 Hemoglobin A1C 5.6 TSH 0.830 Testosterone 310 WBC 4.70 6.92 RBC 4.59 4.76 Hemoglobin 14.8 15.3 Hematocrit 45.9 47.9 ASSESSMENT/PLAN: Hypogonadism - he needs to give the medication IM (currently deep sc), will re-test for dose effectiveness ? PLAN: ? Use 18g needle to draw up testosterone, inject with 21g needle INTRAMUSCULARLY ? Get blood test 7 days after injection. ? Will call with results. ? Avoid dairy products, work on losing weight ? See me again in 6-9 months. Mehul Duque MD CNOV Observed: 12/17/2017 Status: COMPLETED Source: [facility] 2:05 PM [facility] REPOSITORY Office Visit (SELVIN) TAYLORTUAN Georgi ([id number]) 1950 M Date Time Provider Department 12/17/17 2:05 PM MEHUL DUQUE During your visit today, we recorded the following information about you: Pulse Blood pressure Weight Height 90/minute 110/78 98.1 kg 1.77 m Mehul Duque MD, MD 12/18/2017 1:23 PM Signed Follow-up 67 year-old male, patient of Dr. ALESHIA Kim, here for hypogonadism follow up. Previously followed by Dr. Beba Márquez. History in brief, he was diagnosed 5 years ago when he developed symptoms The diagnosis was made Body logics- Dr.Gary Rashid Márquez decreased his testosterone dose after he was noted to have elevated testosterone level ~ 1300 Current treatment: he takes 0.50 ml q 2 weeks (has been giving it deep sc) Had pacemaker/defibrillator placed in 09/2017 ? Current Outpatient Prescriptions on File Prior to Visit: testosterone cypionate (DEPO-TESTOSTERONE) 200 mg/mL injection Inject 0.5 ml IM every 2 weeks Safety Hershey (EASY TOUCH FLIPLOCK NEEDLE) 27 gauge x 1/2ANDquot; ndle Use as directed every 2 weeks Needle, Disp, 18 G (BD DISPOSABLE NEEDLES) 18 gauge x 1ANDquot; ndle Use as directed to drawn testosterone sacubitril-valsartan (ENTRESTO) 24-26 mg tablet Take 1 tablet by mouth twice daily. furosemide (LASIX) 20 mg tablet Take 20 mg by mouth once daily. cholecalciferol (VITAMIN D-3) 5,000 unit tab Take 5,000 Units by mouth once daily. cyanocobalamin (VITAMIN B-12) 1,000 mcg tab Take 1,000 mcg by mouth once daily. Magnesium Oxide 500 mg tab Take 500 mg by mouth once daily. UBIDECARENONE (COQ-10 ORAL) Take 100 mg by mouth once daily. carvedilol (COREG) 3.125 mg tablet Take 3.125 mg by mouth once daily. spironolactone (ALDACTONE) 50 mg tablet Take 1 tablet by mouth once daily. digoxin (LANOXIN) 125 mcg tablet Take 1 tablet by mouth once daily. venlafaxine (EFFEXOR) 50 mg tablet Take 1 tablet by mouth once daily. bimatoprost (LUMIGAN) 0.01 % drop ophthalmic drops 1 Drop daily at bedtime. CINNAMON BARK (CINNAMON ORAL) Take 1,000 mg by mouth twice daily. tamsulosin (FLOMAX) 0.4 mg Cp24 Take 0.4 mg by mouth once daily. General symptoms: Fatigue: No Weight change: weight gain of 5 lbs since last visit Decreased libido Shaving frequency: no changes, every other day Depression: on Effexor Urinary frequency: No, on diuretics ?? REVIEW OF SYSTEMS: ? GENERAL: Fever - No Changes in weight -see above Notes no daytime hypersomnolence NEUROLOGICAL: Numbness, tingling or sensation of pins and needles - No Headaches-No ? HEAD, EYES, EARS, NOSE, AND THROAT: Changes in hearing - No Changes in vision - No ? ? CARDIOVASCULAR: Chest pain or pressure - No Palpitations - No ? RESPIRATORY: Cough - No Wheezing - No Shortness of breath - No ? ? GASTROINTESTINAL: Abdominal discomfort - No Nausea - No Vomiting - No ? EXTREMITY: Edema (swelling) - No Claudication-No ? MUSCULOSKELETAL: Muscle pain or ache - No Arthralgia-No ? Skin: Rash - No Pruritus-No ? ENDOCRINE: Diabetes - No Thyroid disorder - No ? PSYCHOLOGICAL: Depression - No ? ALLERGIES: ALLERGIES ALLERGIES Allergen Reactions - Augmentin [Amoxicil* Intolerance, Diarrhea - Etodolac Intolerance ? ? ? PAST MEDICAL HISTORY: PAST?MEDICAL?HISTORY PAST MEDICAL HISTORY Diagnosis Date - Ankle fracture 1980 ? left - Cancer (HCC) 08/18/2006 ? skin - Clavicle fracture 11/1972 ? right - Depression ? - Diverticulosis ? - Enlarged prostate ? - Fibromyalgia ? - H/O microdiscectomy 05/2015 - Herniated disc ? - Hypertension ? - Lower GI bleeding 11/10/2015 - Osteoarthritis ? - Shoulder fracture 12/1997 ? left - Skin cancer 2005,2011 ? ?PHYSICAL EXAM: BP 110/78 (BP Site: Left Arm, BP Position: Sitting, BP Cuff Size: Large Adult) Pulse 90 Ht 177 cm (5' 9.69ANDquot;) Wt 98.1 kg (216 lb 3.2 oz) SpO2 97% BMI 31.3 kg/m2 General: Alert and oriented x3, no acute distress Weight stable Eyes: Anicteric sclera. Pupils are equally round. Extraocular movements are intact. Mucous membranes moist, no erythema Neck supple, no cervical lymphadenopathy Thyroid: normal size, normal texture, no palpable nodules Lungs: Breathing unlabored, clear to auscultation. No wheezing, rhonchi, rales Heart regular rate and rhythm, no murmer Musculoskeletal: Muscular strength intact, No joint swelling, deformity, or tenderness Neuro: Gait normal. Sensation grossly intact. Normal DTR's at patella Abdomen:Normal abdominal sounds, non tender to palpation, no masses Extremities: without edema, good peripheral pulses Skin: no rashes/ erythema ? Results for TUAN NAVARRO ( ) 08/30/2017 10:06 09/15/2017 11:01 11/17/2017 09:32 Sodium 141 Potassium 4.7 Chloride 98 CO2 30 BUN 18 Creatinine 0.99 Glucose 103 (H) Calcium 9.7 Vitamin B12 558 PSA 0.96 PSA, Percent Free 22 Hemoglobin A1C 5.6 TSH 0.830 Testosterone 310 WBC 4.70 6.92 RBC 4.59 4.76 Hemoglobin 14.8 15.3 Hematocrit 45.9 47.9 ASSESSMENT/PLAN: Hypogonadism - he needs to give the medication IM (currently deep sc), will re-test for dose effectiveness ? PLAN: ? Use 18g needle to draw up testosterone, inject with 21g needle INTRAMUSCULARLY ? Get blood test 7 days after injection. ? Will call with results. ? Avoid dairy products, work on losing weight ? See me again in 6-9 months. MD Mehul Castillo MD, MD 12/17/2017 2:28 PM Signed Use 18g needle to draw up testosterone, inject with 21g needle. Get blood test 7 days after injection. Will call with results. Avoid dairy products. See me again in 6-9 months. Referring Provider: SELF [[id number]] Allergies As of Date: 12/17/2017 Noted Allergy Reaction AUGMENTIN (AMOXICILLIN-POT CLAVUL*12/08/2016 5 - Intolerance 6 - Diarrhea ETODOLAC 12/08/2016 5 - Intolerance Date Reviewed: 12/17/2017 Reviewed by: Stephen Del Toro Ma - Fully Assessed Primary Visit Diagnosis:Hypogonadism male [E29.1] Order(s):Syringe, Disposable, (EASY TOUCH LUER LOCK SYRINGE) 1 mL syrgFor testosterone injections.Disp: 10 SyringeRfl: 3 Needle, Disp, 18 G (BD DISPOSABLE NEEDLES) 18 gauge x 1 ndleUse as directed to drawn testosteroneDisp: 10 EachRfl: 3 Needle, Disp, 21 G 21 gauge x 1 ndleFor testosterone injectionsDisp: 10 EachRfl: 3 testosterone cypionate (DEPO-TESTOSTERONE) 200 mg/mL injectionInject 0.5 ml IM every 2 weeksDisp: 10 mLRfl: 0 TESTOSTERONE TOTAL [SQTESTO] Order #: [id number] FUTURE Prescriptions as of 12/17/2017 Sig: NEEDLE (DISP) 18 GAUGE X 1 Use as directed to drawn test* TESTOSTERONE CYPIONATE 200 MG* Inject 0.5 ml IM every 2 weeks SACUBITRIL 24 MG-VALSARTAN 26* Take 1 tablet by mouth twice * FUROSEMIDE 20 MG TABLET Take 20 mg by mouth once ricardo* CHOLECALCIFEROL (VITAMIN D3) * Take 5,000 Units by mouth onc* CYANOCOBALAMIN (VIT B-12) 1,0* Take 1,000 mcg by mouth once * MAGNESIUM OXIDE 500 MG TABLET Take 500 mg by mouth once jreemias* COQ-10 ORAL Take 100 mg by mouth once jeremias* CARVEDILOL 3.125 MG TABLET Take 3.125 mg by mouth once d* SPIRONOLACTONE 50 MG TABLET Take 1 tablet by mouth once d* DIGOXIN 125 MCG TABLET Take 1 tablet by mouth once d* VENLAFAXINE 50 MG TABLET Take 1 tablet by mouth once d* BIMATOPROST 0.01 % EYE DROPS 1 Drop daily at bedtime. CINNAMON ORAL Take 1,000 mg by mouth twice * TAMSULOSIN 0.4 MG CAPSULE Take 0.4 mg by mouth once jeremias* SYRINGE (DISPOSABLE) 1 ML For testosterone injections. NEEDLE (DISP) 21 GAUGE X 1 For testosterone injections Problem List As Of Date 12/17/2017 Noted Resolved Enthesopathy of hip region [M76.899] INVALID FOR*12/17/2017 Facet arthropathy (HCC) [M46.90] INVALID FOR*12/17/2017 Lumbar radiculopathy [M54.16] INVALID FOR* Left hip pain [M25.552] INVALID FOR*12/17/2017 Left knee pain [M25.562] INVALID FOR*12/17/2017 Chondrocalcinosis [M11.20] INVALID FOR* Hip arthritis [M16.10] INVALID FOR*12/17/2017 Lower GI bleeding [K92.2] INVALID FOR*12/17/2017 Hypogonadism male [E29.1] INVALID FOR* Snoring [R06.83] INVALID FOR* Presence of combination internal cardiac defibr*INVALID FOR* Other instructions from your clinician: Use 18g needle to draw up testosterone, inject with 21g needle. Get blood test 7 days after injection. Will call with results. Avoid dairy products. See me again in 6-9 months. Prescriptions ordered this encounter Disp Refills Start End SYRINGE (DISPOSABLE) 1 ML 10 S* 3 12/17/2017 Sig: For testosterone injections. NEEDLE (DISP) 18 GAUGE X 1 10 E* 3 12/17/2017 Sig: Use as directed to drawn testosterone NEEDLE (DISP) 21 GAUGE X 1 10 E* 3 12/17/2017 Sig: For testosterone injections TESTOSTERONE CYPIONATE 200 MG/ML INT* 10 mL 0 12/17/2017 12/17/2018 Class: Print RX Sig: Inject 0.5 ml IM every 2 weeks Medications Discontinued During This Encounter multivitamin tablet 12/17/2017 Class: Historical Med Route: ORAL Sig: Take 1 tablet by mouth once daily. Disc: Discontinued by Patient Safety [place] (EASY TOUCH FLIPLOCK * 30 E* 1 08/30/2017 12/17/2017 Sig: Use as directed every 2 weeks Disc: Course of therapy completed Needle, Disp, 18 G (BD DISPOSABLE NE* 30 E* 1 08/30/2017 12/17/2017 Sig: Use as directed to drawn testosterone Disc: Reason for discontinue is not on file. testosterone cypionate (DEPO-TESTOST* 10 mL 0 08/31/2017 12/17/2017 Class: Med Update Sig: Inject 0.5 ml IM every 2 weeks Disc: Reason for discontinue is not on file. Follow-up and Disposition History Recorded Encounter Status:Closed by MEHUL DUQUE MD on 12/18/17 PROVIDER LETTER - Observed: 10/20/2017 Status: F Source: [facility] 10:[address] [facility] PILO KIM, [address] [place] [address] RE: TUAN NAVARRO - 1950 Dear PILO KIM This document is confidential and intended solely for the use of the individual or entity to which they are addressed. If you are not the named addressee, please disregard and do not disseminate, distr ibute or copy this information. If you are not the intended recipient you are notified that any disclosure of this information and its contents are strictly prohibited. If you have any questions about this document, please contact the office. Sincerely, JULIO CHOUDHARY, JAN [facility] The following document(s) were included in the letter: October 20, 2017 10:17:00 EST - (10/20/2017) Cardiology Office Note with BMI AMB OFFICE-PROGRESS Observed: 10/20/2017 Status: F Source: [facility] NOTES-PROVIDER 10:[address] [facility] Patient: TUAN NAVARRO Age: 67 years Sex: Male : 1950 Associated Diagnoses: None Author: JAN KIM MD Visit Information Visit type: Scheduled follow-up. Accompanied by: No one. Source of history: Self. Referral source: Self. History limitation: None. Chief Complaint Follow-up appointment after biventricular pacemaker implant at [facility]. Patient denies any cardiac symptoms and present at this site looks dry. He has no orthopnea or PND and taking his medication regularly basis. Review of Systems Constitutional: No fever, No chills, No sweats. Eye: Negative. Ear/Nose/Mouth/Throat: Negative. Respiratory: No shortness of breath, No cough. Cardiovascular: No chest pain, No syncope. Gastrointestinal: No nausea, No vomiting. Genitourinary: Negative. Gynecologic Hematology/Lymphatics: No bruising tendency, No bleeding tendency. Endocrine: Negative. Musculoskeletal: Negative. Integumentary: No rash, No abrasions. Psychiatric: No anxiety, No depression. Health Status Allergies: Allergies (2) Active Reaction Augmentin None Documented etodolac None Documented Current medications: Home Medications (13) Active carvedilol 3.125 mg oral tablet 3.125 mg = 1 tabs, ORAL, BID cinnamon 1,000 mg, ORAL, BID Co-Q10 100 mg oral capsule 100 mg = 1 caps, ORAL, DAILY digoxin 125 mcg (0.125 mg) oral tablet 125 mcg = 1 tabs, ORAL, DAILY Entresto 24 mg-26 mg oral tablet 1 tabs, ORAL, BID Flomax 0.4 mg oral capsule 0.4 mg = 1 caps, ORAL, DAILY furosemide 20 mg oral tablet 20 mg = 1 tabs, ORAL, DAILY Lumigan 0.01% ophthalmic solution 1 drops, Both Eyes, QPM magnesium 500 mg, ORAL, DAILY spironolactone 50 mg oral tablet 50 mg = 1 tabs, ORAL, DAILY Testosterone Cypionate 100 mg/mL intramuscular solution 50 mg = 0.5 mL, IM, [id number] venlafaxine 50 mg oral tablet 50 mg = 1 tabs, ORAL, DAILY Vitamin D3 , ORAL, DAILY Problem list: Active Problems (7) At risk for falls Dilated cardiomyopathy HTN (hypertension) LBBB (left bundle branch block) Orthopnea SOB (shortness of breath) Status post biventricular pacemaker Histories Past Medical History: No qualifying data available Family History: No family history items have been selected or recorded. Procedure history: Coronary Angiograms. (76246) on 01/12/2017 at 66 Years. MICRODISCECTOMY in 2014 at 65 Years. THUMB SURGERY in 2011 at 62 Years. SKIN CANCER in 2005 at 56 Years. CARPEL TUNNEL L HAND in 1992 at 43 Years. ELBOW SURGERY in 1990 at 41 Years. SPINAL BLOCKS 1987,,,13. Dual Chamber Implantable Cardiac Defibrillator & Lead Insertion. (52765). Bi-Ventricular Implantable Cardiac Defibrillator Generator Insertion. (85334). Social History Social & Psychosocial Habits Alcohol 12/04/2016 Risk Assessment: Denies Alcohol Use Exercise 12/04/2016 Risk Assessment: Regular exercise . Physical Examination Temperature 96.9 (09:59) Systolic Blood Pressure 108 (10:16) Diastolic Blood Pressure 62 (10:16) Pulse 80 (09:59) SpO2 No result Respiratory Rate No result Documented vital signs Vital Signs (last 24 hrs) Last Charted Minimum Maximum Heart Rate 80 (OCT 20 09:58) 80 (OCT 20 09:58) 80 (OCT 20 09:58) SBP 108 (OCT 20 10:16) 108 (OCT 20 10:16) 108 (OCT 20 10:16) DBP 62 (OCT 20 10:16) 62 (OCT 20 10:16) 62 (OCT 20 10:16) Weight 96 (OCT 20 09:58) Height 183 (OCT 20 09:58) BMI 28.67 (OCT 20 09:58) General: Alert and oriented, No acute distress. Skin: No cyanosis, Not jaundiced. Eye: Normal conjunctiva. HENT: Normocephalic. Neck: Supple, Non-tender, No carotid bruit, No jugular venous distention, No lymphadenopathy, No thyromegaly. Respiratory: Symmetrical chest wall expansion, No chest wall tenderness. Breath sounds: Bilateral, Anterior, Posterior, No wheezing, No crackles present. Cardiovascular: Normal rate, Regular rhythm, No murmur, No gallop, Good pulses equal in all extremities, Normal peripheral perfusion, No edema. Gastrointestinal: Soft, Non-tender, Normal bowel sounds, No organomegaly. Genitourinary: No costovertebral angle tenderness. Lymphatics: No lymphadenopathy neck, axilla, groin. Musculoskeletal Normal range of motion. Normal strength. No tenderness. No deformity. Integumentary: Warm. Neurologic: Alert, Oriented, No focal deficits. Psychiatric: Cooperative, Normal judgment. Review / Management No qualifying data available Impression and Plan 1. Dilated cardiomyopathy. 2. Severe systolic dysfunction. 3. Blood pressures controlled. 4. Congestive heart failure compensated. 5. Status post biventricular pacemaker, site is normal. Plan. 1. Advised to resume normal activity. 2. No acute medications. 3. Follow-up appointment 3 months or sooner if needed. Electronically signed by Dr. Aliyah Kim. ALLERGIES ALLERGIES DATE TYPE / NAME / CODE REACTION SEVERITY SOURCE CODE 12/08/2016 DRUG/[id number] AMOXICILLIN-POT INTOLERANCE [facility] 1003(SNOME CLAVULANATE [address] [facility] [address] [facility]) Repository 12/08/2016 DRUG ETODOLAC INTOLERANCE [facility] INGREDI/41 [address] [id number](SN Repository OMED CT) ENCOUNTERS ENCOUNTERS ADMIT/DISCHARGE ACCOUNT NUMBER ADMITTING ENCOUNTER LOCATION SOURCE CLASS 10/04/2018/10/04/19 [id number] Ambulatory [place] [address] ing:[facility] Repository 08/26/2018 [id number] Ambulatory [facility] ding:CT Repository 07/26/2018 [id number] Ambulatory [facility] [place] Repository 07/01/2018 [id number] Ambulatory [facility] ing:[facility] Repository 07/01/2018/07/01/20 [id number] Ambulatory [place] [address] ing:[facility] oom: [address] Repository 06/22/2018/06/22/20 [id number] Ambulatory [address] Repository 06/22/2018/06/24/20 [id number] Ambulatory [address] Repository 05/25/2018/05/25/20 [id number] Ambulatory [facility] 18 ing:[facility] Repository 04/27/2018/04/27/20 [id number] Ambulatory [facility] 18 ing:[facility] Repository 04/01/2018/04/01/20 [id number] Ambulatory [facility] 18 ing:[facility] General oom: [address] [place] [address] Repository 03/22/2018/03/22/20 [id number] Ambulatory [facility] 18 ing:[facility] Repository 01/18/2018/01/19/20 [id number] Ambulatory [facility] 18 ing:[facility] Repository 12/29/2017 [id number] Ambulatory [facility] Repository 12/17/2017/12/18/19 [id number] Ambulatory [address] Repository 11/06/2017/11/06/19 [id number] Ambulatory [address] 18 g:[facility] Repository 10/20/2017/10/20/19 [id number] Ambulatory [facility] 18 ing:[facility] General oom: [address] Repository PAYERS PAYERS ENCOUNTER GUARANTOR PAYER SUBSCRIBER SOURCE 10/04/2018 TUAN Laureano Primary TUAN [facility] TAYOLRDOB: Insurance:MEDICAL KELLYDOB: [facility] [id number] Number: Effective [place], [place] Date:1799-25-16[place], [place] [address]Skl: [phone] Name:C [id number]~~~No Email [phone] () AddressTel: () () 08/26/2018 TUAN SCANLON Primary Insurance:MMO TUAN Laureano Antonio W MAIN MEDICAREPolicy KELLYDOB: [place], [place] Number: [id number] [address]Iaw: [phone] [id number] Repository [phone] () Date:[id number] [address]SS: 08/26/2018 Secondary NOT GIVENUNK [place] Insurance:SELF PAY [facility] Number: Effective Repository Date:2018-08-19 07/01/2018 TUAN Laureano [facility] Insurance:MEDICAL NOR[place] POWNALDOB: [facility] [id number] [address] Number: Effective [facility] [place] Date:2008-09-13 - [place] [address]Nju: [phone] [id number] Name:Day [id number]~~No Email [phone] () AddressTel: () (WP) 07/01/2018 TUAN Laureano Primary [facility]AN [facility] Insurance:MEDICAL KELLYDOB: [facility] [id number] [place] [address] Number: Effective [facility]ository [facility] [place] Date:2008-09-13 - [place] [address]Cuj: [phone] Name:Day [id number]~~No Email [phone] () AddressTel: () (WP)
== END ==
PROVIDERS: Referring Provider Orthopaedic Surgery; Visit Provider Orthopaedic Surgery
DX: M19.011 Primary osteoarthritis, right shoulder (principal)
CPT/HCPCS: 73200

== ENCOUNTER → 2021-02-11 16:33 | Outpatient (CLI) | payer MEDICARE, SELFPAY ==
--- NOTE | 2021-02-11 16:45 | RAD_ITS ---
STUDY: X-RAY - LUMBAR SPINE REASON FOR EXAM: Male, 70 years old. Postlaminectomy syndrome, not elsewhere classified TECHNIQUE: 4 view(s) of the lumbar spine were obtained. COMPARISON: None FINDINGS: Lumbar spine is intact and aligned with expected age-related changes in the discs and endplates. Mineralization is normal without destructive lesions. There are age-related changes in the facets throughout. SI joints are normal. Aorta is moderately calcified. Pacemaker leads are present in the heart. RAD/L/S Spine Min 4 Views IMPRESSION: Unremarkable lumbar spine with expected age-related change. Electronically Signed: Payal Cedeno MD at 19:10 EDT Tel , Service support ,
== END ==
PROVIDERS: PCP Internal Medicine; Referring Provider Anesthesiology Pain Medicine; Visit Provider Anesthesiology Pain Medicine
DX: M96.1 Postlaminectomy syndrome, not elsewhere classified (principal)
CPT/HCPCS: 72110

== ENCOUNTER → 2022-02-10 | Outpatient (CLI) | payer MEDICARE, SELFPAY ==
--- NOTE | 2022-02-10 10:00 | MRI_ITS ---
STUDY: MRI LUMBAR SPINE WITH AND WITHOUT CONTRAST REASON FOR EXAM: Male, 71 years old. POST LAMI; bilat feet/thigh numbness, back pain TECHNIQUE: Standardized fat and water weighted pulse sequences were obtained in the sagittal and axial planes. IV 15ml Dotarem was administered for the contrast portion of the examination. COMPARISON: 02/11/2021 lumbar spine x-rays FINDINGS: T12-L1: Only included on the sagittal images. Endplate herniation pits visible, small to moderate size. Mild disc height loss. No evidence of central spinal canal narrowing. No neural foraminal narrowing. Normal lumbar lordosis. There is no substantial scoliosis. Visualized distal cord shows normal signal and contour with no intramedullary mass lesion. Conus terminates normally at the L1 vertebral body level. More peripheral nerve roots are without clumping or tethering. L1-2: Disc desiccation and height loss with small endplate herniation pits. Mild posterior disc bulge with tiny annular fissure slightly flattens anterior thecal sac but does not cause any nerve root impingement. There is mild facet hypertrophy and mild bilateral neural foraminal narrowing without impingement. L2-3: Small endplate herniation pits from degenerative disc which shows height loss and disc desiccation. Broad-based posterior disc herniation with more focal involvement of the left foraminal zone. There is mild central spinal canal stenosis with no nerve root impingement. There is mild left neural foraminal narrowing, slightly worsened by bilateral mild facet hypertrophy. No nerve root impingement. L3-4: Moderate to severe intervertebral disc height loss and disc desiccation. Broad-based posterior disc herniation with more focal involvement left lateral foraminal zone. There is mild central spinal canal narrowing but no impingement on the descending nerve roots. There is moderate bilateral neural foramina with mild impingement, left greater than right. L4-5: Disc desiccation mild height loss. Small central annular fissure. Broad-based posterior disc herniation mildly flattens anterior thecal sac resulting in mild central spinal canal stenosis. No nerve root impingement. There is mild bilateral neural foraminal narrowing also from facet arthropathy. L5-S1: Disc desiccation and height loss. Posterior broad-based disc herniation touches both descending nerve roots but is without impingement. There is mild bilateral neural foraminal narrowing without nerve root impingement. Sagittal STIR images show no evidence of ligamentous injury. Postcontrast enhanced images show no intra or extradural abnormal enhancement. Normal vascular enhancement. Normal visualized sacral ala. 12 mm right mid, posterior fluid signal and 6 mm left lower pole fluid signal likely representing simple cysts. No suspicious solid component suggested on this limited assessment. Paraspinous musculature shows some mild diffuse atrophy. Visualized sacroiliac joints show bridging anterior osteophytes. Sclerotic appearance posterior iliac bone, adjacent to the sacroiliac joint may represent site of prior bone biopsy. No aggressive osseous lesion. MRI/Spine Lumbar W/WO Contrast IMPRESSION: Multilevel degenerative disc disease and facet arthropathy. No significant central spinal canal stenosis. There is mild nerve root impingement of the exiting L3 nerve roots at L3-4, left greater than right. Electronically Signed: Chito Morales DO at 21:00 EDT ,
[2022-02-10 10:20] LABS: EGFR FINGERSTICK > 60.0000 mL/min (>60)
[2022-02-10 10:45] VITALS: BP 134/84; PULSE 100; RESP 16; O2SAT 98
[2022-02-10 11:00] VITALS: BP 133/80; PULSE 100; RESP 16; O2SAT 93
[2022-02-10 11:15] VITALS: BP 127/81; PULSE 95; RESP 14; O2SAT 99
== END | disposition home or self-care (01) ==
LOC: MRI 09:45
PROVIDERS: PCP Internal Medicine; Referring Provider Nurse Practitioner Family; Visit Provider Nurse Practitioner Family
DX: M96.1 Postlaminectomy syndrome, not elsewhere classified (principal)
CPT/HCPCS: 72158; A9575

== ENCOUNTER → 2022-05-20 | Outpatient (CLI) | payer MEDICARE, SELFPAY ==
--- NOTE | 2022-05-20 14:22 | NEURO ---
NCS and/or EMG Patient Report Ordering Doctor: Sarita Miles NP DATE OF SERVICE: 05/20/22 Boom presents electrodiagnostic testing of the lower limbs. He reports numbness and tingling in both feet and lower back pain. Electrodiagnostic findings: Peroneal motor nerve demonstrates normal distal latency, amplitude and conduction velocity bilaterally. Tibial motor response within normal limits bilaterally. Sensory responses are normal. Normal tibial and peroneal F waves. H reflex borderline prolonged bilaterally On needle EMG, all muscles tested in the lower limbs showed no evidence of denervation with normal motor unit action potentials Electrodiagnostic impression: This is a normal electrodiagnostic study of the lower limbs. There is no electrodiagnostic evidence for lumbosacral radiculopathy or peripheral polyneuropathy
== END | disposition home or self-care (01) ==
PROVIDERS: PCP Internal Medicine; Referring Provider Nurse Practitioner Family; Visit Provider Nurse Practitioner Family
DX: M54.17 Radiculopathy, lumbosacral region (principal)
CPT/HCPCS: 95886; 95912